=== PATIENT | male | born 1985 | race Caucasian/White ===

== ENCOUNTER 2016-07-03 17:20 | Emergency (ER) | payer OTHER ==
[2016-07-03 17:29] VITALS: BP 127/68; PULSE 59; TEMP 97.9; BMI 25.8
[2016-07-03] MEDS ORDERED: IBUPROFEN 600 MG TABLET (FP) PO ONE (17:57)
[2016-07-03] MEDS ORDERED: IBUPROFEN 400 MG TABLET (FP) PO ONE (18:05)
--- NOTE | 2016-07-03 18:09 | PDOC ---
History of Present Illness - General Chief Complaint: Injury Stated Complaint: RT HAND INJURY Time Seen by Provider: 07/03/16 17:55 History Source: Patient Exam Limitations: No Limitations - History of Present Illness Initial Comments: 07/03/16 18:07 30 yr male injured right index finger today at work. 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 pt is a [place] PO. Pt has ice applied. Occurred: reports: just prior to arrival Pain Location: reports: upper extremity (right index finger) Past History - Past Medical History Allergies/Adverse Reactions: Allergies Allergy/AdvReac Type Severity Reaction Status Date / Time vancomycin Allergy Severe Itching/ALEENA Verified 07/03/16 17:25 PHYLAXIS Home Medications: Ambulatory Orders Ibuprofen [Motrin -] 800 mg PO TID #30 tablet 11/03/14 Anemia: No Asthma: No Cancer: No Cardiac Disorders: No Suicide Attempt (Hx): No Other medical history: NONE - Surgical History Abdominal Surgery: No Appendectomy: No Cardiac Surgery: No Cholecystectomy: No - Immunization History Td Vaccination: Yes Immunization Up to Date: Yes - Psycho/Social/Smoking Cessation Hx Anxiety: No Suicidal Ideation: No Smoking Status: No Smoking History: Never smoked Years of Tobacco Use: 0 Have you smoked in the past 12 months: No Number of Cigarettes Smoked Daily: 0 Cigars Per Day: 0 Information on smoking cessation initiated: No Hx Alcohol Use: No Drug/Substance Use Hx: No Substance Use Type: None Review of Systems - Review of Systems Able to Perform ROS?: Yes Is the patient limited [place] proficient: No Constitutional: No: Symptoms Reported HEENTM: No: Symptoms Reported Respiratory: No: Symptoms reported Cardiac (ROS): No: Symptoms Reported ABD/GI: No: Symptoms Reported : No: Symptoms Reported Musculoskeletal: Yes: See HPI *Physical Exam - Vital Signs Last Vital Signs Temp Pulse Resp BP Pulse Ox 97.9 F 59 L 18 127/68 100 07/03/16 17:26 07/03/16 17:26 07/03/16 17:26 07/03/16 17:26 07/03/16 17:26 - Physical Exam General Appearance: Yes: Nourished, Appropriately Dressed HEENT: positive: EOMI, CARLI Extremity: positive: Normal Capillary Refill, Normal Range of Motion, Tender ( pip joint), Swelling (right index finger at pip joint) Integumentary: positive: Normal Color, Dry, Warm Neurologic: positive: Fully Oriented, Alert, Normal Mood/Affect, Normal Response , Motor Strength 08/06 ED Treatment Course - RADIOLOGY Radiology Studies Ordered: Category Date Time Status FINGER(S) RIGHT [RAD] Stat Radiology 07/03/16 17:57 Ordered - Medications Given in the ED: ED Medications Discontinued Medications Generic Name Dose Route Start Last Admin Trade Name Freq PRN Reason Stop Dose Admin Ibuprofen 800 mg 07/03/16 17:57 07/03/16 18:06 Motrin - PO 07/03/16 17:58 800 mg ONCE ONE Administration Medical Decision Making - Medical Decision Making 07/03/16 18:09 cc: finger injury at work will xray to r/o fx nv intact ice applied pt has FROM 07/03/16 18:11 *DC/Admit/Observation/Transfer Diagnosis at time of Disposition: Finger contusion Qualifiers: Encounter type: initial encounter Finger: index finger Damage to nail status: without damage Laterality: right Qualified Code(s): S60.021A - Contusion of right index finger without damage to nail, initial encounter - Discharge Dispostion Disposition: HOME Condition at time of disposition: Good - Referrals Referrals: Hu Giordano MD [Staff Physician] - - Patient Instructions Additional Instructions: follow with the orthopedist for follow up if any worsening pain ice every 2hrs for 20 minutes take motrin as needed for pain - Post Discharge Activity Work/School Note: Back to Work
== END 2016-07-03 18:18 | disposition home or self-care (01) ==
LOC: JERFT 17:20
DX: S60.021A Contusion of right index finger without damage to nail, initial encounter (principal); V48.4XXA Person boarding or alighting a car injured in noncollision transport accident, initial encounter; Y92.488 Other paved roadways as the place of occurrence of the external cause; Y93.89 Activity, other specified; Y99.0 Civilian activity done for income or pay
CPT/HCPCS: 73140-TC-RT; 99281-25

== ENCOUNTER 2016-09-24 18:45 | Emergency (ER) | payer OTHER ==
[2016-09-24 18:51] VITALS: BP 132/72; PULSE 65; TEMP 97.8; BMI 25.0
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
== END 2016-09-24 20:45 | disposition home or self-care (01) ==
LOC: JERFT 18:45
DX: S09.8XXA Other specified injuries of head, initial encounter (principal); G44.309 Post-traumatic headache, unspecified, not intractable; M54.5 Low back pain; M54.2 Cervicalgia; V47.5XXA Car driver injured in collision with fixed or stationary object in traffic accident, initial encounter; Y92.414 Local residential or business street as the place of occurrence of the external cause; Y93.89 Activity, other specified; Y99.0 Civilian activity done for income or pay
CPT/HCPCS: 70450-TC; 72125-TC; 99281-25

== ENCOUNTER 2018-04-10 00:42 | Emergency (ER) | payer OTHER ==
[2018-04-10] MEDS ORDERED: BACITRACIN 0.9 GM PACKET ONE (00:55)
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
[2018-04-10] MEDS ORDERED: BACITRACIN 15 GM TUBE TOPICAL OINTMENT TP ONE (01:08)
[2018-04-10 01:31] VITALS: PULSE 79; TEMP 98.5; BMI 20.7
[2018-04-10 01:40] VITALS: BP 126/76
== END 2018-04-10 01:43 | disposition home or self-care (01) ==
LOC: JER 00:42
DX: S60.512A Abrasion of left hand, initial encounter (principal); Y93.89 Activity, other specified; Y35.891A Legal intervention involving other specified means, law enforcement official injured, initial encounter; Y92.89 Other specified places as the place of occurrence of the external cause; Y99.0 Civilian activity done for income or pay; Z86.14 Personal history of Methicillin resistant Staphylococcus aureus infection
CPT/HCPCS: 99281-25

== ENCOUNTER 2021-05-18 22:38 | Emergency (ER) | payer OTHER ==
[2021-05-18 22:46] VITALS: BP 137/90; PULSE 66; TEMP 98.1; BMI 25.8
[2021-05-18] MEDS ORDERED: KETOROLAC TROMETHAMINE 60 MG/2 ML VIAL IM ONE (22:54)
[2021-05-18] MEDS ORDERED: KETOROLAC TROMETHAMINE 60 MG/2 ML VIAL ONE (23:06)
== END 2021-05-19 00:25 | disposition home or self-care (01) ==
LOC: FER 22:38
PROC: 3E0233Z Introduction of Anti-inflammatory into Muscle, Percutaneous Approach (ICD-10-PCS; principal; 2021-05-18)
DX: S16.1XXA Strain of muscle, fascia and tendon at neck level, initial encounter (principal); M54.50 Low back pain, unspecified; W00.0XXA Fall on same level due to ice and snow, initial encounter
CPT/HCPCS: 72110-TC-FY; 72125-TC; 99284-25